=== PATIENT | female | born 1975 | race Caucasian/White ===

== ENCOUNTER 2016-08-01 01:38 | Emergency (ER) | payer BC, OTHER ==
[~2016-08-01] VITALS: Ht 165.1 cm; Wt 60.0 kg
[~2016-08-01 01:38] MED LIST: IBUP-238 PO; TYLE3 PO; Z.0.NO CURRENT MEDS
[2016-08-01 01:50] VITALS: BP 155/108; PULSE 107; RESP 18; TEMP 98.4; O2SAT 96
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
[2016-08-01] MEDS ORDERED: HALOPERIDOL LACTATE 5 MG/ML AMP IM ONE (02:15)
[2016-08-01 02:16] LABS: AUTOMATED NEUTROPHIL # 9.6 TH/MM3 (1.8-7.7); BASOPHIL # 0.2 TH/MM3 (0-0.2); BASOPHIL % 1.1 % (0.0-2.0); EOSINOPHIL # 0.3 TH/MM3 (0-0.4); EOSINOPHIL % 1.7 % (0.0-4.0); HEMATOCRIT 41.1 % (35.0-46.0); HEMO FLAGS DIFF FINAL; LYMPH % 27.7 % (9.0-44.0); LYMPHOCYTE # 4.4 TH/MM3 (1.0-4.8); MEAN CELL VOLUME 93.4 FL (80.0-100.0); MEAN CORPUSCULAR HEMOGLOBIN 31.8 PG (27.0-34.0); MONO % 9.2 % (0.0-8.0); NEUT % 60.3 % (16.0-70.0); PLATELET COUNT 307 TH/MM3 (150-450); RED CELL DISTRIBUTION WIDTH 13.4 % (11.6-17.2); WHITE BLOOD COUNT 15.9 TH/MM3 (4.0-11.0)
[2016-08-01 02:22] LABS: AMPHETAMINE, URINE NEG (NEG); BARBITURATES, URINE NEG (NEG); COCAINE, URINE NEG (NEG)
[2016-08-01 02:28] LABS: ALT (GPT) 30 U/L (10-53); ANION GAP 8 MEQ/L (5-15); AST (GOT) 31 U/L (15-37); BICARBONATE 24.4 MEQ/L (21.0-32.0); BLOOD UREA NITROGEN 7 MG/DL (7-18); CHLORIDE 112 MEQ/L (98-107); GLOMERULAR FILTRATION RATE 67 ML/MIN (>89); POTASSIUM 3.8 MEQ/L (3.5-5.1); SODIUM (NA) 144 MEQ/L (136-145)
[2016-08-01 02:30] LABS: ALKALINE PHOSPHATASE 95 U/L (45-117); TOTAL BILIRUBIN ADULT 0.2 MG/DL (0.2-1.0)
[2016-08-01 07:27] VITALS: BP 93/52; PULSE 81; RESP 16; O2SAT 98
[2016-08-01 11:27] VITALS: BP 99/55; PULSE 80; RESP 18; O2SAT 98
[2016-08-01 11:44] VITALS: BP 125/79; PULSE 78; RESP 18; TEMP 98.1; O2SAT 98
[2016-08-01 14:00] VITALS: BP 145/85; PULSE 80; RESP 18
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
== END 2016-08-01 15:03 | disposition home or self-care (01) ==
LOC: NEPD 01:38 → NEPJ 15:03
DX: F10.94 Alcohol use, unspecified with alcohol-induced mood disorder (principal); R45.851 Suicidal ideations; Y90.8 Blood alcohol level of 240 mg/100 ml or more; F17.210 Nicotine dependence, cigarettes, uncomplicated; F12.10 Cannabis abuse, uncomplicated
CPT/HCPCS: 80053; 80307; 84703; 85025; 96372; 99283; J1630